=== PATIENT | female | born 1950 | race Caucasian/White ===

== ENCOUNTER → 2016-10-07 | Outpatient (CLI) | payer OTHER ==
--- NOTE | 2016-10-07 17:44 | DX ---
Chest, Two Views at 1449 hours History: COPD exacerbation. Chest pain. Comparison: October 2014 Findings: Cardiac silhouette is within normal range. Thoracic dextroscoliosis. Mild degenerative dise ase mid thoracic spine. No pneumonia, congestive heart failure, pleural effusion, or pneumothorax. Hy perinflation lungs suggesting COPD. Impression: 1. Suspect COPD. 2. No focal pneumonia. 3. Consider low dose screening CT chest for further evaluation.
--- NOTE | 2016-10-08 08:32 | DX ---
DEXA Bone Mineral Densitometry Clinical Indications: Osteoporosis screening in a postmenopausal female . Comparison: None available. Technique: Bone Mineral Densitometry (BMD) by Dual Energy X-Ray Absorptiometry (DEXA) was performed utilizing the VISup scanner. The lumbar spine was evaluated in the AP projection. The urszula ateral hips and left forearm were evaluated in the AP projection. Vertebral fracture assessment was also performed. AP Lumbar Spine: The L1, L2, L3 and L4 vertebral bodies were evaluated. BMD: 1.046 gm/cm2 T-score: -1.2 SD Z-score: -0.2 SD AP Left Hip: Femoral neck. BMD: 0.733 gm/cm2 T-score: -2.2 SD Z-score: -1.1 SD AP Right Hip: Femoral neck. BMD: 0.816 gm/cm2 T-score: -1.6 SD Z-score: -0.2 SD AP Left Forearm, 08/27: BMD: 0.827 gm/cm2 T-score: -0.6 SD Z-score: 0.9 SD Vertebral Fracture Assessment: No significant fracture deformity. Conclusion: Considering the lowest measured site, the patient's bone density is low; osteopenic ( -2 .5 < T-score < -1 ) The ten year risk for any major osteoporotic fracture is 18.8 % and for a hip fracture is 3.4 %. Any bone loss in this patient is probably related to aging or estrogen deficiency. Recommendations: To prevent osteoporosis and to promote bone density, consider the following recomme ndations: 1. Pursue a regular regimen of weightbearing and muscle strengthening exercises. 2. Optimize daily calcium intake. 3. Check serum hydroxy vitamin D3 (normal >30ng/ml). 4. Ensure daily intake of vitamin D is 800 international units. 5. Consider follow-up DEXA scan in two years to assess the rate of bone loss in this patient. 6. Consider excluding common secondary causes of bone loss.
== END ==
LOC: BRMIMAGING 14:40
PROVIDERS: ATTEND Physician Assistant Medical
DX: Z12.31 Encounter for screening mammogram for malignant neoplasm of breast (principal); Z13.820 Encounter for screening for osteoporosis; M85.80 Other specified disorders of bone density and structure, unspecified site; Z78.0 Asymptomatic menopausal state; R07.9 Chest pain, unspecified
CPT/HCPCS: 71020-PO